=== PATIENT | male | born 1985 | race Caucasian/White ===

== ENCOUNTER 2017-07-12 02:29 | Emergency (ER) | payer MEDICAID, OTHER ==
[~2017-07-12] VITALS: Ht 180.3 cm; Wt 68.0 kg
--- NOTE | 2017-07-12 02:29 | NUR ---
PT [facility], PREBOOK. TAKEN TO OF
[2017-07-12 02:32] VITALS: BP 125/88
--- NOTE | 2017-07-12 02:47 | NUR ---
Dr. Best evaluating patient
[2017-07-12] MEDS ORDERED: LIDOCAINE 1% 500 MG/50 ML VIAL INJ ONE (02:50)
[2017-07-12] MEDS ORDERED: NEOMYCIN/POLYMYXIN/BACITRACIN 0.9 GM/1 PKT TP ONE (02:50)
--- NOTE | 2017-07-12 02:52 | NUR ---
PT MOVED TO BED 7
[2017-07-12] MEDS ORDERED: LIDOCAINE 1% ED 50 ML ONE (03:01)
--- NOTE | 2017-07-12 03:01 | NUR ---
32 Y/O M [facility] FOR MEDICAL CLEARANCE FOR PREBOOK, PT PRESENTS A LACERATION TO R FOREARM. PT DENIES ANY MED HX. PT DENIES ANY N/V/D, SOB, CP AT THE MOMENT. PT AAOX4. BREATHING IS UNLABORED AND EVEN. ER MADE AWARE
[2017-07-12 03:25] VITALS: BP 136/79
--- NOTE | 2017-07-12 03:25 | NUR ---
Patient discharged with v/s stable. Written and verbal after care instructions given and explained. Patient verbalized understanding. Police with in custody. All questions addressed prior to discharge. Advised to follow up with PMD.
== END 2017-07-12 03:25 ==
LOC: MED 02:29
DX: Z02.89 Encounter for other administrative examinations (principal); S41.111A Laceration without foreign body of right upper arm, initial encounter; X58.XXXA Exposure to other specified factors, initial encounter; Y92.89 Other specified places as the place of occurrence of the external cause; Y93.89 Activity, other specified; Y99.8 Other external cause status
CPT/HCPCS: 12002; 99283; J2001